=== PATIENT | male | born 1960 | race Two or more races ===

== ENCOUNTER 2019-12-13 08:33 | Emergency (ER) | payer BC ==
[2019-12-13 08:40] VITALS: BP 144/83; PULSE 60; TEMP 98.9; BMI 29.3
[2019-12-13] MEDS ORDERED: ACETAMINOPHEN 325 MG TABLET (FP) PO ONE (09:45)
[2019-12-13] MEDS ORDERED: LACTATED RINGERS SOLUTION 1000 ML INFUS.BAG IV ONE ×2 (09:47→11:07)
[2019-12-13] MEDS ORDERED: ACETAMINOPHEN 325 MG TABLET (FP) ONE (09:51)
[2019-12-13] MEDS ORDERED: ONDANSETRON 4 MG/2 ML VIAL IVPUSH ONE (10:05)
--- NOTE | 2019-12-13 10:12 | PDOC ---
History of Present Illness - General Chief Complaint: Pain Stated Complaint: PAIN (RT. SIDE) Time Seen by Provider: 12/13/19 09:07 - History of Present Illness Initial Comments: 12/13/19 10:06 59yo M w/ h/o bilateral kidney stones p/w R flank pain since last night. He came home from work around 0100 and at 0200 was woken up by stabbing R flank pain. The pain radiates from his R CVA to the suprapubic region. It is worse w/ move ment and lying on the R side. He took 2 tylenol around 2am that helped the pain. This is associated w/ burning on urination. Denies visible hematuria. Denies visible discharge. Denies concern for STI but is sexually active. Denies fever. Had a bowel movement around 6am today. Says it was not painful. Denies vomiting but endorses mild nausea. States that he was asymptomatic when he was DX with kidney stones last time. It was an Incidental finding on CT. Is on diltiazem for AF. Denies other medical history or meds. Endorses h/o hernia repair. b/l. >10years ago. Denies smoking, ETOH, street drugs. Claims he ate a salad last night and denies a h/o gallstones. Past History - Medical History Allergies/Adverse Reactions: Allergies Allergy/AdvReac Type Severity Reaction Status Date / Time No Known Allergies Allergy Verified 12/13/19 08:35 Home Medications: Ambulatory Orders Diltiazem HCl [Diltiazem 24Hr Cd] 180 mg PO DAILY 12/13/19 Tamsulosin HCl [Flomax] 0.4 mg PO DAILY #14 cap.er.24h 12/13/19 Cardiac Disorders: Yes (Afib) COPD: No Disorders: Yes (kidney stones) - Psycho-Social/Smoking History Smoking History: Never smoked - Substance Abuse Hx (Audit-C & DAST Scrn) How often the patient has a drink containing alcohol: Never Score: In Men: 4 or > Positive; In Women: 3 or > Positive: 0 Screen Result (Pos requires Nsg. Audit-10AR): Negative In the last yr the pt used illegal drug/Rx for NonMed reason: No Score: Yes response is considered Positive: 0 Screen Result (Positive result requires Nsg. DAST-10): Negative Review of Systems - Review of Systems Able to Perform ROS?: Yes Is the patient limited Lithuanian proficient: No Constitutional: No: Chills, Fever HEENTM: No: Blurred Vision Respiratory: No: Cough, Productive cough Cardiac (ROS): No: Chest Pain, Edema, Lightheadedness ABD/GI: Yes: Nausea. No: Abdominal Distended, Constipated, Diarrhea, Vomiting : Yes: Burning, Dysuria. No: Hematuria Musculoskeletal: Yes: Back Pain. No: Neck Pain Integumentary: No: Rash Neurological: No: Headache, Dizziness All Other Systems: Reviewed and Negative *Physical Exam - Vital Signs Last Vital Signs Temp Pulse Resp BP Pulse Ox 98.9 F 60 16 144/83 99 12/13/19 08:37 12/13/19 08:37 12/13/19 08:37 12/13/19 08:37 12/13/19 08:37 - Physical Exam General Appearance: Yes: Nourished, Appropriately Dressed HEENT: positive: JANAE, Normal Voice Neck: positive: Trachea midline Respiratory/Chest: positive: Lungs Clear, Normal Breath Sounds Cardiovascular: positive: Regular Rhythm, S1, S2. negative: Murmur, Bradycardia, Tachycardia, Gallop/S3 Gastrointestinal/Abdominal: positive: Normal Bowel Sounds, Soft, Tenderness. negative: Organomegaly, Pulsatile Mass, Increased Bowel Sounds, Hepatomegaly, Spleenomegaly Rectal Exam: positive: deferred Musculoskeletal: positive: Normal Inspection Extremity: negative: Pedal Edema, Swelling Integumentary: positive: Normal Color. negative: Cold, Ecchymosis ED Treatment Course - LABORATORY CBC & Chemistry Diagram: 12/13/19 10:00 12/13/19 10:00 - RADIOLOGY Radiology Studies Ordered: Category Date Time Status SPIRAL- RENAL-STONE CT [CT] Stat CT Scan 12/13/19 09:46 Ordered - Medications Given in the ED: ED Medications Discontinued Medications Generic Name Dose Route Start Last Admin Trade Name Freq PRN Reason Stop Dose Admin Acetaminophen 1,000 mg 12/13/19 09:45 12/13/19 09:52 Tylenol - PO 12/13/19 09:46 1,000 mg ONCE ONE Administration Lactated Ringer's 1,000 ml 12/13/19 09:47 12/13/19 09:52 Lactated Ringers Solution IV 12/13/19 09:48 1,000 ml ONCE ONE Administration Discharge - Discharge Information Problems reviewed: Yes Clinical Impression/Diagnosis: Nephrolithiasis Condition: Good - Admission No - Additional Discharge Information Prescriptions: Tamsulosin HCl [Flomax] 0.4 mg PO DAILY #14 cap.er.24h - Follow up/Referral Referrals: Benjamin Howe MD [Primary Care Provider] - Kevin Serrano MD [Staff Physician] - - Patient Discharge Instructions Patient Printed Discharge Instructions: DI for Kidney Stones Additional Instructions: You came to the ED because of flank (side) pain that goes to your back and down towards your bladder. We took a picture (CT scan) of your abdomen and saw multiple kidney stones, one of which is in the narrow tube on the right that connects your right kidney to your bladder. It is called the ureter. We gave you some fluids in an IV, and some pain medication. We also are sending you home with some medicine to help you urinate more easily. Hopefully this will help with the pain. You may take 2 pills (400mg) of advil/ibuprofen/motrin every 4-6hours for the pain. Call your primary care doctor or come back to the ED. Please come back to the emergency room if the pain becomes unbearable and are unable to reach your doctor or you develop any other severe symptoms. Please follow up with Dr. Serrano (urology) within five days of leaving the ED. - Post Discharge Activity
[2019-12-13 10:17] LABS: HEMATOCRIT 45.6 % (35.4-49); HEMOGLOBIN 15.4 GM/dL (11.7-16.9); MCHC 33.9 g/dl (32.0-35.9); MEAN CELL VOLUME 91.7 fl (80-96); MEAN PLT VOLUME 8.1 fl (7.5-11.1); PLATELET COUNT 218 K/MM3 (134-434); RBC 4.97 M/mm3 (4.00-5.60); RDW 13.9 % (11.9-15.9); WHITE BLOOD COUNT 9.1 K/mm3 (4.0-10.0)
[2019-12-13 10:22] LABS: EPI CELLS 5 /uL (0-25.1); HYALINE CASTS 0 /uL (0-3.1); PH,URINE 5.5 (5.0-8.0); URINE APPEARANCE CLEAR; URINE BACTERIA 35 /uL (0-1359); URINE BILIRUBIN NEGATIVE (NEGATIVE); URINE COLOR YELLOW; URINE GLUCOSE (UA) NEGATIVE (NEGATIVE); URINE KETONE 2+ (NEGATIVE); URINE LEUK ESTERASE NEGATIVE (NEGATIVE); URINE NITRITE NEGATIVE (NEGATIVE); URINE PROTEIN NEGATIVE (NEGATIVE); URINE RBC 33 /uL (0-23.9); URINE UROBILINOGEN 0.2 mg/dL (0.2-1.0); URINE WBC 3 /uL (0-25.8)
[2019-12-13 10:40] LABS: ALBUMIN 4.3 g/dl (3.4-5.0); BILIRUBIN,TOTAL 1.6 mg/dL (0.2-1); BLOOD UREA NITROGEN 14.9 mg/dL (7-18); CALCIUM 9.1 mg/dL (8.5-10.1); POTASSIUM 4.2 mmol/L (3.5-5.1); TOT PROT 7.8 g/dl (6.4-8.2)
[2019-12-13] MEDS ORDERED: KETOROLAC TROMETHAMINE 15 MG/ML VIAL ONE (10:47)
[2019-12-13] MEDS ORDERED: KETOROLAC TROMETHAMINE 15 MG/ML VIAL IVPUSH ONE (10:51)
--- NOTE | 2019-12-13 13:17 | PDOC ---
Documentation entered by Mauri Anderson SCRIBE, acting as scribe for Billie Bueno MD. Billie Bueno MD: This documentation has been prepared by the Justin moore Aaron, SCRIBE, under my direction and personally reviewed by me in its entirety. I confirm that the documentation accurately reflects all work, treatment, procedures, and medical decision making performed by me. Attending Attestation - Resident Resident Name: Erwin Gordon - HPI HPI: 12/13/19 10:32 The patient is a 59 year old male with a significant PMH of bilateral kidney stones who presents to the emergency department for R sided flank pain since last night. Patient reports waking after work around 1:00 am by stabbing R flank pain. Patient reports pain is worsened with movement and lying on his R side. Patient reports taking 2 tylenol at 2:00 am which helped with the pain. Patient endorses burning with urination and mild nausea. Last BM was 6 am, not painful. The patient denies hx of gallstones, hematuria, STI, visible discharge, fever, vomiting, or any other symptoms. Allergies: NKDA Past surgical history: h/o hernia repair. b/l. >10years ago. Social Hx: Denies smoking, ETOH, street drugs. PCP: Benjamin Howe MD - Physicial Exam PE: 12/13/19 13:08 Agree with resident exam. patient is alert and oriented and in no acute distress. Abdomen is soft, non tender, non distended without guarding or rebound. No CVA tenderness. - Medical Decision Making 12/13/19 13:13 Pt presents to the ED complaining of R sided flank pain without fever, nausea or vomiting. Labs are within normal limits. Ct shows 5 mm stone with mild hydro. pain is controlled with toradol. Will discharge home with urology follow up. 12/13/19 13:16 Discharge - Discharge Information Problems reviewed: Yes Clinical Impression/Diagnosis: Nephrolithiasis Condition: Good Disposition: HOME - Additional Discharge Information Prescriptions: Tamsulosin HCl [Flomax] 0.4 mg PO DAILY #14 cap.er.24h - Follow up/Referral Referrals: Kevin Serrano MD [Staff Physician] - Benjamin Howe MD [Primary Care Provider] - - Patient Discharge Instructions Patient Printed Discharge Instructions: DI for Kidney Stones Additional Instructions: You came to the ED because of flank (side) pain that goes to your back and down towards your bladder. We took a picture (CT scan) of your abdomen and saw multiple kidney stones, one of which is in the narrow tube on the right that connects your right kidney to your bladder. It is called the ureter. We gave you some fluids in an IV, and some pain medication. We also are sending you home with some medicine to help you urinate more easily. Hopefully this will help with the pain. You may take 2 pills (400mg) of advil/ibuprofen/motrin every 4-6hours for the pain. Call your primary care doctor or come back to the ED. Please come back to the emergency room if the pain becomes unbearable and are unable to reach your doctor or you develop any other severe symptoms. Please follow up with Dr. Serrano (urology) within five days of leaving the ED. - Post Discharge Activity
== END 2019-12-13 11:27 | disposition home or self-care (01) ==
LOC: JER 08:33
PROC: 3E033NZ Introduction of Analgesics, Hypnotics, Sedatives into Peripheral Vein, Percutaneous Approach (ICD-10-PCS; principal; 2019-12-13)
PROC: 3E033GC Introduction of Other Therapeutic Substance into Peripheral Vein, Percutaneous Approach (ICD-10-PCS; 2019-12-13)
DX: N20.0 Calculus of kidney (principal)
CPT/HCPCS: 36415; 74176-TC; 80053; 81003; 85027; 87086; 99285-25

== ENCOUNTER 2023-07-17 22:22 | Emergency (ER) | payer BC, OTHER ==
[2023-07-17 22:25] VITALS: BP 134/87; PULSE 93; RESP 18; TEMP 98.1; BMI 28.1
[2023-07-17 23:39] LABS: EPI CELLS 3 /uL (0-25.1); HYALINE CASTS 0 /uL (0-3.1); URINE APPEARANCE CLEAR; URINE BACTERIA 2 /uL (0-1359); URINE BILIRUBIN NEGATIVE (NEGATIVE); URINE COLOR YELLOW; URINE GLUCOSE (UA) NEGATIVE (NEGATIVE); URINE KETONE NEGATIVE (NEGATIVE); URINE LEUK ESTERASE NEGATIVE (NEGATIVE); URINE NITRITE NEGATIVE (NEGATIVE); URINE PROTEIN NEGATIVE (NEGATIVE); URINE RBC 54 /uL (0-23.9); URINE WBC 2 /uL (0-25.8)
== END 2023-07-18 01:10 | disposition home or self-care (01) ==
LOC: JER 22:22
DX: S31.33XA Puncture wound without foreign body of scrotum and testes, initial encounter (principal); N50.89 Other specified disorders of the male genital organs; X58.XXXA Exposure to other specified factors, initial encounter; Y93.89 Activity, other specified; Y92.009 Unspecified place in unspecified non-institutional (private) residence as the place of occurrence of the external cause
CPT/HCPCS: 81003; 87086; 99283-25